=== PATIENT | female | born 1990 | race Caucasian/White ===

== ENCOUNTER 2025-09-11 14:07 | Outpatient (CLI) | payer OTHER, SELFPAY ==
[2025-09-11 14:31] LABS: Hematocrit 34.9 % (37.0-47.0); Hemoglobin 11.8 g/dL (12.0-15.0); Mean Corpuscular HGB Conc 33.8 g/dl (32-36); Mean Corpuscular Hemoglobin 31.1 pg (26-34); Mean Corpuscular Volume 92.1 fl (80-100); Platelet Count Result 264 k/mm3 (150-375); Red Blood Count 3.79 M/mm3 (4.2-5.4); White Blood Count 8.1 K/mm3 (4.5-10.0)
[2025-09-11 14:54] LABS: Albumin Level 4.6 g/dL (3.5-5.1); Anion Gap 5 mmol/L (4-12); Blood Urea Nitrogen 15 mg/dL (7-17); Calcium 9.1 mg/dL (8.4-10.2); Carbon Dioxide 27 mmol/L (22-30); Chloride 103 mmol/L (98-107); Estimated Glomerular Filt Rate > 60; Glucose 106 mg/dL (65-110); Iron 53 ug/dL (37-170); Sodium 135 mmol/L (137-145)
[2025-09-11 15:01] LABS: Prealbumin 28.8 mg/dL (17.6-36.0)
[2025-09-11 15:03] LABS: Potassium 3.9 mmol/L (3.4-5.0)
[2025-09-11 16:06] LABS: Vitamin B12 450.0 pg/mL (239-931)
--- OUTSIDE RECORDS SUMMARY | 2025-09-11 17:04 | XMS_ITS ---
Author Organization Unknown ENCOUNTERS Encounter Performer Location Date Diagnosis Diagnosis Status Outpatient [address] [address] [id number] *Note: Encounters from your own facility or health system may be excluded. Allergies, Adverse Reactions, Alerts Allergen Type Severity Identification Date Medications Name Date Quantity Days Supplied GPI Number
--- OUTSIDE RECORDS SUMMARY | 2025-09-11 17:04 | XMS_ITS | Encounter Summary ---
Author Organization [facility] Address 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 Miguel. Associated Symptoms: area feels warm, feels feverish - unable to check temp, red area , unable to feed or pump on that side Onset: pain yesterday - worsening, other sx last night - area of redness increasing Location: by nipple rt upper quarter Pain Assessment: 1 - 10 with 10 being the most severe pain 6 constantly - worse with pressure Treatment so far for current presenting problem: tylenol, cold and warm compresses, pumping, massage, cabbage History (Clinical Problems): breast feeding 1 yr old at night only - in process of weaning History (Oncology/Hematology Diagnosis): no Medications: zoloft Medication reactions: NO <<<<<<<< TRIAGE NOTE >>>>>>>> Triage Note: Document Imaging Specialist Jasmin Pressley added this note on May 02 2015 3:07PM: Paging service contacted. Given patient's name, , physician and problem with nurses name and number Document Imaging Specialist [email or web address] added this note on May 02 2015 3:36PM Dr Fay returned page and asked to be connected to the patient. He suggested that she continue warm compresses and pumping breast and stated that he would call an antibiotic in <<<<<<<< TRIAGE/OUTCOME >>>>>>>> Guideline Title: : Breast Symptoms ; : Breast Symptoms Recommended Disposition: See Provider within 4 hours Original Inclination: Call Provider/See in 24 Override Disposition: Redirection Page Intended Action: Call Provider Immediately Physician Contacted: Yes New onset or increasing redness, tenderness, localized warmth or swelling ? YES documented in this encounter Plan of Treatment Not on file documented as of this encounter Visit Diagnoses Not on filedocumented in this encounter Care Teams Bat Carrier Relationship Specialty [place] [id number] [address] PCP - General Internal Medicine 02/06/20 documented as of this encounter
--- OUTSIDE RECORDS SUMMARY | 2025-09-11 17:04 | XMS_ITS | Clinical Summary ---
Author Organization [facility] Address [address] [place] [address] Care Team Providers Care Warp Hauler Name Role Phone Ivan Cano MD Primary Care Provider [phone] Allergies Active Allergy Reactions Criticality Noted Date Comments Metoclopramide Hcl Anxiety Low 07/03/2017 Medications CETIRIZINE HCL (ZYRTEC ORAL) Take by mouth. A ctive albuterol HFA 90 mcg inhaler Take 2 Puffs by inhalation every 6 hours as needed for Shortness of Breath 2 puffs 15 mins prior to exercise.. 8.5 Gram 1 9 Active sertraline (ZOLOFT) 100 mg tablet TAKE 1 TABLET BY MOUTH ONCE A DAY 9 Active spironolactone (ALDACTONE) 100 mg tablet 0 Active ARMOUR THYROID 60 mg tablet 0 Active naltrexone 4.5 mg Capsule Take 1 Tablet by mouth daily. 5 Active Slynd 4 mg (28) Tablet 4 mg. 5 Active eszopiclone (LUNESTA) 3 mg Tablet 3 mg. 5 Active liothyronine (CYTOMEL) 25 mcg Tablet 25 mcg. 5 Active minoxidiL (LONITEN) 2.5 mg tablet 2.5 mg. 5 Active Active Problems Problem Noted Date Diagnosed Date Rubella non-immune status, antepartum 01/05/2017 Allergic rhinitis 06/13/2013 Bruxism (teeth grinding) 11/08/2012 Gastroparesis 10/06/2011 IBS (irritable bowel syndrome) 09/15/2011 Sliding hiatal hernia 09/15/2011 Depression with anxiety 07/28/2011 Hypothyroidism 07/28/2011 Hyperlipidemia 07/28/2011 Resolved Problems Problem Noted Date Diagnosed Date Resolved Date Normal labor 07/03/2017 08/15/2017 Supervision of other normal , antepartum 06/26/2017 08/15/2017 Gestational hypertension 06/19/2017 Encounter for supervision of other normal , third trimester 05/11/2017 06/19/2017 Cellulitis and abscess of oral soft tissues 12/13/2014 08/24/2021 SROM @ 0800, Pit, O+, GBS-, h/o IBS, asthma 04/21/2014 05/06/2014 Supervision of normal first 10/14/2013 06/09/2014 Mild hyperemesis gravidarum, antepartum 10/14/2013 05/06/2014 Rubella non-immune status, antepartum 10/01/2013 05/06/2014 Overview (10/01/2013): Vaccine HTN (hypertension) 07/28/2011 7 Dyspnea 08/24/2021 Encounters Date Type Department Care Team Description 07/22/2025 External Device Data [facility] Provider, Abstract 06/30/2025 2:14 PM CDT - 06/30/2025 11:59 PM CDT Hospital Encounter [facility] [address] [place] [address] Itz Marte MD Discharge Disposition: Home or Self Care from Last 3 Months Immunizations Immunization Administration Dates Next Due (ADACEL/BOOSTRIX)(10 YR UP) TDAP VACCINE, 0.5ML, IM 05/23/2017,03/17/2014,01/31/2012 (M-M-R II/PRIORIX)(12 MO UP) MEASLES, MUMPS AND RUBELLA VIRUS VACCINE, 0.5 ML IM/SUBCUT 07/04/2017,04/22/2014 Influenza Seasonal Unspecifi ed Formulation IM 07/22/2012 Family History Medical History Relation Name Comments Asthma Father Kwadwo Car High Cholesterol Father Kwadwo Car Hypertension Father Kwadwo Car Healthy Half-Brother Breast Cancer Maternal Aunt Heather Ovarian Cancer Maternal Aunt Heather Colon Polyps Maternal Grandfather Mango Corley Diabetes Maternal Grandfather Mango Corley Heart Disease Maternal Grandfather Mango Corley High Cholesterol Maternal Grandfather Mango Corley Hypertension Maternal Grandfather Mango Corley Lung Cancer Maternal Grandfather Mango Corley Melanoma Maternal Grandfather Mango Corley Stroke Maternal Grandfather Mango Corley Melanoma Maternal Grandmother Anusha Corley Melanoma Mother Haylee Car Thyroid Disease Mother Haylee Car Breast Cancer Other [place] Great Aunt Ovarian Cancer Other [place] Great Aunt Breast Cancer Paternal Aunt Jennie Heart Disease Paternal Grandfather High Cholesterol Paternal Grandfather Hypertension Paternal Grandfather Asthma Paternal Grandmother Heart Disease Paternal Grandmother High Cholesterol Paternal Grandmother Hypertension Paternal Grandmother Lung Cancer Paternal Grandmother Celiac Disease Neg Hx Colon Cancer Neg Hx Crohn's Disease Neg Hx Liver Disease Neg Hx Pancreatic Cancer Neg Hx Relation Name Status Comments Father Kwadwo Car Alive Half-Brother Alive Maternal Aunt Heather Alive Maternal Grandfather Mango Corley Alive Maternal Grandmother Anusha Corley Alive Mother Haylee Car Alive Other [place]a Alive Paternal Aunt Jennie Alive Paternal Grandfather Alive Paternal Grandmother Social History Tobacco Use Types Packs/Day Years Used Date Smoking Tobacco: Never Smokeless Tobacco: Never Tobacco Cessation:Counseling Given: No Alcohol Use Standard Drinks/Week Comments No 0 (1 standard drink = 0.6 oz pur e alcohol) Comments No Sex and Gender Information Value Date Recorded Sex Assigned at Not on file 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 Sex 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 Gender Identity Not on file Sexual Orientation Not on file Occupation Industry Job Start Date Job End Date Not on file Not on file Not on file Not on file Not on file Not on file Not on file Not on file Last Filed Vital Signs Vital Sign Reading Time Taken Comments Blood Pressure 142/94 06/28/2022 1:32 PM CDT Pulse 68 06/28/2022 1:32 PM CDT Temperature 36.8 C (98.3 F) 03/23/2025 12:36 PM CDT Respiratory Rate 16 03/23/2025 12:36 PM CDT Oxygen Saturation 98% 06/28/2022 1:32 PM CDT Inhaled Oxygen Concentration - - Weight 62.6 kg (138 lb) 03/23/2025 12:36 PM CDT Height 167.6 cm (5' 6) 03/23/2025 12:36 PM CDT Body Mass Index 22.27 03/23/2025 12:36 PM CDT Plan of Treatment Health Maintenance Due Date Last Done Comments HPV/Cotest (21-29) 07/02/2018 07/02/2013 HPV/Cotest (30-65) 12/15/2019 07/02/2013 CERVICAL CANCER SCREENING 08/06/2022 PAP SMEAR 08/06/2022 08/06/2019, 10/2012, 10/25/2011 INFLUENZA VACCINE (#1) 2025 07/22/2012 DTAP/TDAP/TD VACCINES (9 - T d or Tdap) 05/23/2027 05/23/2017, 03/17/2014, 01/31/2012, Additional history exists HEPATITIS B VACCINES Completed 01/23/2002, 08/22/2001, 06/20/2001 HPV VACCINES (No Doses Required) Completed Procedures Procedure Name Priority Date/Time Associated Diagnosis Comments MAMMO 3D HUSSEIN SCREEN BILAT W OR WO CAD Routine 06/30/2025 2:23 PM CDT Encounter for mammogram to establish baseline mammogram CERV/VAG CYTO AGE BASED SCREEN PAP Routine 08/06/2019 9:59 AM DIE TRIPPER Well woman exam with routine gynecological exam CERV/VAG CYTOPATH, THIN PREP IMAGR RFLX HPV Routine 07/02/2013 2:28 PM CDT Routine gynecological examination from Last 3 Months or Most Recently Relevant to Health Maintenance Results * MAMMO 3D HUSSEIN SCREEN BILAT W OR WO CAD (06/30/2025 2:23 PM CDT) Anatomical Region Laterality Modality Breast Bilateral Mammography 06/30/2025 2:29 PM CDT Addenda Addendum by Cy Soto MD on 07/01/2025 3:18 PM CDT Prior mammogram from an outside facility is now available for review dated 08/30/2023. Left breast ultrasound from an outside facility is also available for review dated 08/30/2023. In the inferior right breast middle depth, there is an asymmetry. There is a possible correlate in the central right breast middle depth. There is no suspicious finding in the left breast. IMPRESSION: Right breast asymmetry warrants further evaluation. OVERALL FINAL ASSESSMENT: BI-RADS CATEGORY 0: Incomplete, need additional imaging evaluation. RECOMMENDATION: Right breast diagnostic mammogram and possible ultrasound. Impressions 06/30/2025 3:55 PM CDT IMPRESSION: [facility] will request the patient's previous outside studies in order to assess for stability. An addendum will be provided after reviewing the outside exams. DICTATION LOCATION: Location 9 - [facility] Narrative 06/30/2025 3:55 PM CDT BILATERAL FULL-FIELD DIGITAL SCREENING MAMMOGRAM WITH CAD AND TOMOGRAPHY DATE: 06/30/2025 2:23 PM HISTORY: Annual screening. TECHNIQUE: Low-dose full-field digital breast tomosynthesis examination was performed with 2D and 3D acquisitions. Examination is read in conjunction with computer aided detection. COMPARISON: No prior mammograms are available for comparison. A left breast ultrasound dated 01/08/2010 is currently available for review. BREAST COMPOSITION: Heterogeneously dense, which limits the sensitivity of mammography FINDINGS: Previous exams are currently unavailable. The patient's outside studies will be requested in order to assess for stability. OVERALL FINAL ASSESSMENT: BI-RADS CATEGORY 0: Incomplete - Need Prior Mammograms for Comparison Itz Marte MD MAMMO ORDERABLES Edited Result - Final * CERV/VAG CYTO AGE BASED SCREEN PAP (08/06/2019 9:59 AM DIE TRIPPER) COMMENT (PAP): SEE COMMENT 9 4:08 PM DIE TRIPPER [facility] Comment: This order for age-based cervical cancer and STI screening follows ACOG guidelines(PB 168, 140, KLY490). See individual assays for performing site location. CLINICAL INFORMATION Routine exam 08/09/2019 4:08 PM DIE TRIPPER [facility] LAST MENSTRUAL PERIOD INFORMATION NOT PROVIDED 08/09/2019 4:08 PM DIE TRIPPER [facility] PREV PAP: INFORMATION NOT PROVIDED 08/09/2019 4:08 PM DIE TRIPPER [facility] PREV BX: INFORMATION NOT PROVIDED 08/09/2019 4:08 PM DIE TRIPPER [facility] SOURCE Endocervix 08/09/2019 4:08 PM DIE TRIPPER [facility] ADEQUACY: SEE COMMENT 08/09/2019 4:08 PM DIE TRIPPER [facility] Comment: Satisfactory for evaluation. Endocervical/transformation zone component present. Age and/or menstrual status not provided PAP INTERP Negative for intraepithelial lesion or malignancy. 08/09/2019 4:08 PM DIE TRIPPER [facility] COMMENT This Pap test has been evaluated with computer assisted technology. 08/09/2019 4:08 PM DIE TRIPPER [facility] CRUSHER OPERATOR: SEE COMMENT 2018 4:08 PM DIE TRIPPER [facility] Comment: BIRDTANNER(ASCP) CT screening location: [place] [address] [place] [address] EXPLANATORY NOTE SEE COMMENT 019 4:08 PM DIE TRIPPER [facility] Comment: EXPLANATORY NOTE: The Pap is a screening test for cervical cancer. It is not a diagnostic test and is subject to false negative and false positive results. It is most reliable when a satisfactory sample, regularly obtained, is submitted with relevant clinical findings and history, and when the Pap result is evaluated along with historic and current clinical information. Genital SWAB OF ENDOCERVIX / Unknown Collection / Unknown 08/06/2019 9:59 AM DIE TRIPPER 08/06/2019 9:19 PM DIE TRIPPER Narrative [facility] - 08/09/2019 4:08 PM DIE TRIPPER Performing Organization Information: Site ID: [place] [facility] Address: [address] [place] [address] Director: Sammy Kulkarni D.O., MPH Site ID: [place] [facility] Address: [address] [address] Director: Nirav Pillai us Jessica Almendarez MD PATHOLOGY/CYTOLOGY ORDERABLES Fi nal Result [facility] [phone] * CERV/VAG CYTOPATH, THIN PREP IMAGR RFLX HPV (07/02/2013 2:28 PM CDT) CLINICAL INFORMATION [facility] Comment:Information not prov ided LAST MENSTRUAL PERIOD [facility] Comment:06/18/13 PREV PAP: [facility] Comment:INFORMATION NOT PROV IDED PREV BX: [facility] Comment:INFORMATION NOT PROV IDED SOURCE [facility] Comment:Endocervix ADEQUACY: [facility] Comment: Specimen processed and examined, but unsatisfactory for evaluation due to an insufficient number of squamous cells. INTERPRETATION [facility] Comment: Unable to provide interpretation due to unsatisfactory specimen adequacy. COMMENT [facility] Comment: This Pap test has been evaluated with computer assisted technology. Microscopic features suggestive of lubricant. Lubricant jellies may interfere with slide preparation; their use is not recommended. Consider repeat tobacco farmworker cytology in 4-6 months, as clinically indicated. CRUSHER OPERATOR: [facility] Comment:TANNER GUTIERREZ(ASCP) REVIEW CRUSHER OPERATOR: [facility] Comment: BIRD CT(ASCP) Test Performed at: [facility] [address] [place] [address] SAMMY KULKARNI DO, MPH Endocervical 07/02/2013 2:28 PM CDT Jessica Almendarez MD PATHOLOGY/CYTOLOGY ORDERABLES nal Result INTERFACE SYSTEM Refer to clinic/hospital department [facility] [address] [place] [address] from Last 3 Months or Most Recently Relevant to Health Maintenance Insurance [facility] [employer] [id number] RX [employer] Member Subscriber Plan / Payer (Ef fective for All Dates) Name:Claudia Viera Relation to Subscriber:Self Name:Jenniferlobo Claudia Saini Payer ID:Not on file Group ID:[id number] Type:RX Commercial Address: [address] [place] [employer] [address] [address] [id number] Advance Directives For more information, please contact: [phone] * Full Code (Latest Code Status on File) Date Activated Date Inactivated Comments 03/12/2020 7:11 AM 03/12/2020 12:20 PM * Full Code Date Activated Date Inactivated Comments 03/12/2020 5:49 AM 03/12/2020 7:11 AM * Full Code Date Activated Date Inactivated Comments 07/03/2017 9:39 PM 07/05/2017 1:58 PM * Full Code Date Activated Date Inactivated Comments 07/03/2017 10:48 AM 07/03/2017 9:39 PM * Full Code Date Activated Date Inactivated Comments 04/22/2014 3:25 AM 04/23/2014 4:09 PM Care Teams Warp Hauler Relationship Specialty [place] [id number] [address] PCP - General Internal Medicine 02/06/20
[2025-09-15 04:10] LABS: Copper, Serum or Plasma 56 ug/dL (80-158)
[2025-09-16 18:08] LABS: Vit. B1, Whole Blood 134.1 nmol/L (66.5-200.0)
== END 2025-09-11 14:08 | disposition home or self-care (01) ==
LOC: ANHLAB 14:12
PROVIDERS: Visit Provider Surgery Plastic and Reconstructive Surgery
DX: R63.4 Abnormal weight loss (principal)
CPT/HCPCS: 36415; 80048; 82040; 82525; 82607; 82746; 83540; 84134; 84425; 85027